=== PATIENT | female | born 1995 | race Caucasian/White ===

== ENCOUNTER 2020-06-10 16:31 | Emergency (ER) | payer SELFPAY ==
[~2020-06-10] VITALS: Ht 157.5 cm; Wt 56.0 kg
[2020-06-10] MEDS ORDERED: BACITRACIN ZINC OINT UDPKT TOP ONE (17:00)
[2020-06-10] MEDS ORDERED: TETANUS, DIPHTHERIA, PERTUSSIS VAC/PF 0.5ML (>7YR OLD) IM ONE (17:00)
[2020-06-10] MEDS ORDERED: LIDOCAINE 1%/EPI 1:100,000 10 ML VIAL IJ ONE (17:00)
[2020-06-10 19:58] VITALS: BP 125/79
== END 2020-06-10 20:01 | disposition home or self-care (01) ==
LOC: ER 16:54
DX: S81.811A Laceration without foreign body, right lower leg, initial encounter (principal); W25.XXXA Contact with sharp glass, initial encounter; Y93.89 Activity, other specified; Y92.018 Other place in single-family (private) house as the place of occurrence of the external cause
CPT/HCPCS: 73590; 90471; 90715; 99283; J3490

== ENCOUNTER 2020-06-17 15:34 | Emergency (ER) | payer MEDICAID ==
[~2020-06-17] VITALS: Ht 157.5 cm; Wt 55.0 kg
[2020-06-17 15:36] VITALS: BP 118/61
== END 2020-06-17 16:49 | disposition home or self-care (01) ==
LOC: ER 15:34
DX: Z48.00 Encounter for change or removal of nonsurgical wound dressing (principal)
CPT/HCPCS: 99281

== ENCOUNTER 2020-06-22 16:23 | Emergency (ER) | payer MEDICAID ==
[~2020-06-22] VITALS: Ht 157.5 cm; Wt 56.0 kg
[2020-06-22 18:20] VITALS: BP 128/78
== END 2020-06-22 18:20 | disposition home or self-care (01) ==
LOC: ER 16:23
DX: Z48.02 Encounter for removal of sutures (principal)
CPT/HCPCS: 99281